=== PATIENT | female | born 1950 | race Caucasian/White ===

== ENCOUNTER → 2020-01-25 | Outpatient (REF) | payer OTHER, MEDICARE | LOC: M LAB REF 10:19 | PROVIDERS: ATTEND Nurse Practitioner Family | DX: L60.3 Nail dystrophy (principal) ==

== ENCOUNTER → 2020-06-13 | Outpatient (REF) | payer OTHER, MEDICARE | LOC: M LAB REF 16:10 | PROVIDERS: ATTEND Physician Assistant Medical | DX: Z11.59 Encounter for screening for other viral diseases (principal) ==